=== PATIENT | male | born 1950 | race Caucasian/White ===

== ENCOUNTER → 2017-04-24 | Outpatient (CLI) | payer OTHER ==
--- NOTE | 2017-04-24 10:19 | RAD ---
UPPER EXT JOINT WO CONT RIGHT dated 04/24/2017 9:45 AM Indication: RIGHT SHOULDER PAIN POST FALL 2 MONTHS AGO, NO SX HX, NO PRIORS, ALL IMAGES SENT . . Pain Comparison: No comparison is available. Technique: Routine multiplanar multisequence imaging performed. No contrast administered. Findings: Intermediate T2 signal throughout the supraspinatus and infraspinatus portions of the rotator cuff. No full-thickness tear or retracted tear. Mild articular surface partial tearing of the anterior supraspinatus footplate. Subscapularis is intact. Moderate hypertrophic change of the AC joint. Mild undersurface spurring. Trace amount of subacromial/subdeltoid bursal fluid. Minimal increased signal within the long head biceps tendon proximally. Extra articular portion courses within the bicipital groove. Biceps anchor intact. There is some linear increased signal within the posterior superior labrum and anterior labrum. No glenoid cartilage defect. No joint effusion or loose body. Suprascapular and spinoglenoid notches are clear. No significant muscle edema or muscle atrophy. IMPRESSION: 1. Mild rotator cuff tendinopathy with no evidence of full-thickness tear. 2. Moderate AC joint arthropathy with undersurface spurring. 3. Possible SLAP tear involving the anterior and posterior labrum. Electronically signed by: Marshal Chávez MD (04/24/2017 10:16 AM) [id number]
== END | disposition home or self-care (01) ==
LOC: MRI 08:56
PROVIDERS: ATTEND Internal Medicine
DX: M12.811 Other specific arthropathies, not elsewhere classified, right shoulder (principal)
CPT/HCPCS: 73221